=== PATIENT | male | born 1940 | race Caucasian/White ===

== ENCOUNTER → 2016-09-05 | Outpatient (CLI) | payer BC ==
[2016-09-05 13:27] LABS: ESTIMATED AVERAGE GLUCOSE 134 mg/dl; HA1C FLAG Normal (Normal)
[2016-09-05 13:32] LABS: BLOOD UREA NITROGEN 16 mg/dl (7-18); GLUCOSE 117 mg/dl (70-99)
[2016-09-05 13:33] LABS: ALT/SGPT 28 U/L (12-78); AST/SGOT 13 U/L (15-37); BUN/CREATININE RATIO 17.4 (10-20); CALCIUM 8.4 mg/dl (8.5-10.1); CARBON DIOXIDE 29 mmol/L (21-32); CHLORIDE 108 mmol/L (98-107); POTASSIUM 3.6 mmol/L (3.5-5.1); SODIUM 142 mmol/L (136-145)
[2016-09-05 13:35] LABS: CHOLESTEROL 132 mg/dl (0-200); CHOLESTEROL/HDL RATIO 3.6; HDL CHOLESTEROL 37 mg/dl; LDL CHOLESTEROL CALCULATED 77 mg/dl; TRIGLYCERIDES 90 mg/dl (0-150); VERY LOW DENSITY LIPOPROT CALC 18 mg/dl
--- NOTE | 2016-09-11 13:56 | CODING QUERY MEDICAL NECESSITY ---
SUPPORTING DIAGNOSIS NEEDED Dr. Carreon, A supporting diagnosis is required for the test/procedure performed on this patient in order for us to be reimbursed by the patient's insurance. Please provide a supporting diagnosis for the following test/procedure listed below next to the test name along with your signature. *If there is no additional diagnosis for this patient that would support the following test/procedure please document that below next to the test/procedure. Test(s)/Procedure(s) that require a supporting diagnosis: * [id number] GLYCATED HEMOGLOBIN DIAGNOSIS: DATE OF SERVICE: 09/05/16 Provider Signature: Date: Thank you Tanner Sellers [facility] Information Management Once completed, please kindly fax back to [phone] For questions please call [phone]
== END | disposition home or self-care (01) ==
LOC: C.LABMFLN 11:21
PROVIDERS: ATTEND Family Medicine
DX: I25.10 Atherosclerotic heart disease of native coronary artery without angina pectoris (principal); E78.00 Pure hypercholesterolemia, unspecified; I10 Essential (primary) hypertension; E11.9 Type 2 diabetes mellitus without complications

== ENCOUNTER → 2017-03-08 | Outpatient (CLI) | payer BC ==
[2017-03-08 14:32] LABS: RATIO 4.1 mcg/mg (0-30.0)
[2017-03-08 14:45] LABS: ALT/SGPT 21 U/L (12-78); BLOOD UREA NITROGEN 13 mg/dl (7-18); BUN/CREATININE RATIO 13.6 (10-20); CALCIUM 8.6 mg/dl (8.5-10.1); CARBON DIOXIDE 26 mmol/L (21-32); CHLORIDE 108 mmol/L (98-107); CHOLESTEROL 128 mg/dl (0-200); CREATININE 0.94 mg/dl (0.60-1.40); GLUCOSE 112 mg/dl (70-99); POTASSIUM 3.8 mmol/L (3.5-5.1); SODIUM 139 mmol/L (136-145); TRIGLYCERIDES 87 mg/dl (0-150); VERY LOW DENSITY LIPOPROT CALC 17 mg/dl
[2017-03-08 14:48] LABS: ALB/GLOB RATIO 1.3 (0.9-2); ALKALINE PHOSPHATASE 105 U/L (45-117); AST/SGOT 17 U/L (15-37); CHOLESTEROL/HDL RATIO 3.4; HDL CHOLESTEROL 38 mg/dl; LDL CHOLESTEROL CALCULATED 73 mg/dl
== END | disposition home or self-care (01) ==
LOC: C.LABMFLN 10:52
PROVIDERS: ATTEND Family Medicine
DX: I25.10 Atherosclerotic heart disease of native coronary artery without angina pectoris (principal); E78.00 Pure hypercholesterolemia, unspecified; I10 Essential (primary) hypertension; I48.0 Paroxysmal atrial fibrillation

== ENCOUNTER → 2017-03-12 | Outpatient (CLI) | payer BC | END | disposition home or self-care (01) | LOC: C.LABMFLN 15:44 | PROVIDERS: ATTEND Family Medicine | DX: M79.674 Pain in right toe(s) (principal) ==

== ENCOUNTER → 2017-05-14 | Outpatient (CLI) | payer BC ==
[~2017-05-14] MED LIST: ASPI81TA28 PO; ATOR-22 PO; DILT-119 PO; LISI10TA PO; METO100T44 PO; WARF5TAB90 PO
[2017-05-14 12:52] LABS: INR 1.5 (0.9-1.1); PARTIAL THROMBOPLASTIN RATIO 1.3; PROTHROMBIN TIME (PATIENT) 15.2 SECONDS (9.0-12.0)
[2017-05-14 13:00] LABS: BASO % 0.9 %; BASO ABS # 0.07 K/uL (0-0.2); COMPLETE YES; HEMATOCRIT 43.8 % (42-52); IG% 0.4 %; LYMPH % 17.8 %; LYMPH ABS # 1.32 K/uL (1.2-3.4); MEAN CELL VOLUME 91.3 fL (80-100); MEAN CORPUSCULAR HEMOGLOBIN 31.7 pg (25-34); MEAN CORPUSCULAR HGB CONC 34.7 g/dl (32-36); MEAN PLATELET VOLUME 11.5 fL (7.4-10.4); MONO % 8.3 %; NEUT % 69.6 %; PLATELET COUNT 169 K/uL (130-400); WHITE BLOOD COUNT 7.43 K/uL (4.8-10.8)
[2017-05-14 13:36] LABS: BLOOD UREA NITROGEN 13 mg/dl (7-18); BUN/CREATININE RATIO 14.4 (10-20); CALCIUM 8.5 mg/dl (8.5-10.1); CARBON DIOXIDE 28 mmol/L (21-32); CHLORIDE 106 mmol/L (98-107); CREATININE 0.91 mg/dl (0.60-1.40); GLUCOSE 103 mg/dl (70-99); POTASSIUM 3.5 mmol/L (3.5-5.1); SODIUM 138 mmol/L (136-145)
== END | disposition home or self-care (01) ==
LOC: C.LABMFLN 08:22
PROVIDERS: ATTEND Plastic Surgery
DX: C43.30 Malignant melanoma of unspecified part of face (principal); D09.9 Carcinoma in situ, unspecified; Z01.818 Encounter for other preprocedural examination

== ENCOUNTER → 2017-05-22 | Day surgery (SDC) | payer BC ==
[2017-05-14 11:00] VITALS: Ht 182.9 cm; Wt 90.9 kg
[~2017-05-22] VITALS: Ht 182.9 cm; Wt 90.9 kg
[~2017-05-22] MED LIST changes: +ACETAMINOPHEN 325 MG TAB PO PRN; +ATROPINE SULFATE 0.1 MG/ML 5ML SYR IV PRN; +CEFAZOLIN 2000MG IV PUSH 10 ML IV SCH; +DEXAMETHASONE SOD INJ 4 MG/ML VIAL ONE; +FENTANYL CITRATE INJ 50 MCG/1 ML 2 ML VIAL ONE; +KETAMINE HCL INJ 50 MG/ML 10 ML VIAL ONE; +LACTATED RINGER'S 1000ML 1,000 ML IV SCH; +LIDOCAINE HCL 2% 2 ML VIAL (20MG/ML) ONE; +LIDOCAINE/EPINEPHRINE 1% INJ 50 ML VIAL ONE; +METOCLOPRAMIDE HCL INJ 5 MG/ML 2 ML VIAL IV PRN; +MIDAZOLAM HCL 1 MG/ML 2ML VIAL ONE; +ONDANSETRON INJ 2 MG/ML 2 ML VIAL IV PRN; +ONDANSETRON INJ 2 MG/ML 2 ML VIAL ONE; +OXYCODONE/ACETAMINOPHEN 5-325 TAB PO PRN; +PROPOFOL IV EMULSION 10 MG/ML 20 ML VIAL IV ONE; +SODIUM CHLORIDE 0.9% 1000ML 1,000 ML IV SCH; +SODIUM CHLORIDE 0.9% INJ 10 ML VIAL ONE
--- NOTE | 2017-05-22 10:57 | History & Physical Bridge - [place] ---
H&P Re-Evaluation Bridge Note: I have examined the patient, reviewed the History & Physical and in the interval since the performance of the History & Physical I have noted the following changes of clinical significance: No changes noted
--- NOTE | 2017-05-22 12:44 | [facility] Post Operative Brief Note ---
Immediate Operative Summary Operative Date May 22, 2017. Pre-Operative Diagnosis Malignant melanoma of skin of face, squamous cell carcinoma in situ Post-Operative Diagnosis same Procedure(s) Performed Left Cheek squamous Cell Carcinoma With Primary Closure; Left Ear Melanoma Excision with Full Thickness Skin Graft Surgeon Dr Sultana Velocity Shooter Surgeon(s) INOCENTE Lee Estimated Blood Loss 10ml Findings no residual SCC Specimens A) Squamous Cell Carcinoma in situ left cheek, suture at 12 O'clock B)Melanoma left posterior ear, Breslow depth 0.25 Anesthesia local with sedation Complication(s) None Disposition Recovery Room / PACU
[2017-05-22 12:48] VITALS: TEMP 36.4
--- NOTE | 2017-05-22 12:48 | Discharge Instructions ---
Discharge Instructions Date of Service May 22, 2017. Admission Reason for Admission: Squamous Cell Carincoma Insitu, Malig Melanoma Fac Discharge Discharge Diagnosis / Problem: melanoma and SCC Discharge Goals Goal(s): Decrease discomfort, Improve function Activity Recommendations Activity Limitations: per Instructions/Follow-up section ACTIVITY RECOMMENDATIONS: __Normal activities _x_No bending, lifting or straining __No driving _x_Driving allowed when you are off pain medications _x_Walking permitted __You should have help at home for ___ days DRESSINGS: __No dressings required _x_Keep dressings dry/in place until first office visit __Remove dressings ___ and leave dressings off __Apply ice ___ days __Remove dressings and reapply garment __Apply antibiotic ointment (Bacitracin, Neosporin, etc) to wounds 3-4 times/ day for 10 days BATHING: _x_Keep dressings dry _x_Sponge bathing permitted __Showering permitted _x_No swimming, hot tubs or soaking in a tub MEDICATIONS: Resume previous medications unless instructed otherwise by your surgeon. _x_Do not use aspirin, Motrin, Advil or Ibuprofen as these may promote bleeding. Please use Tylenol. _x_Prescription(s) provided: Resume your coumadin and other medications as previously discussed. pain medication was provided at your last office visit OTHER INSTRUCTIONS: __Record drain output 2-3 times per day SPECIAL CARE INSTRUCTIONS: * It is normal to have a mild fever after surgery. If your temperature is higher than 101.5 degrees F, please call the office at [phone]. * Constipation is a typical side effect of pain medication. An over-the- counter stool softener will help relieve this. * Leaking around surgical drains may occur and should not cause concern. Sometimes these drains become clogged. If this happens, remove the bulb and milk the clot out of the tube, then replace the bulb. * Drainage from wounds after liposuction is normal and should be expected. Garments will become soiled. You should protect furniture and bedding. This drainage should mostly subside within 2-3 days. Leave garments in place unless instructed to remove them. * If you have unusual drainage from a wound or are concerned you have an infection or have any questions or concerns, please call the office at [phone]. FOLLOW UP VISIT: If not already scheduled, please call the office, , when you return home after surgery to schedule an appointment to be seen in _2__ days. . Current Hospital Diet Patient's current hospital diet: Discharge Diet Recommended Diet: Regular Diet Procedures Procedures Performed: Left Cheek squamous Cell Carcinoma With Primary Closure; Left Ear Melanoma Excision with Full Thickness Skin Graft Pending Studies Studies pending at discharge: yes List of pending studies: pathology Laboratory Results Hemoglobin A1c Test 03/08/17 10:55 Range/Units Estimated Average Glucose 131 mg/dl Hemoglobin A1c 6.2 H 4.5-5.6 % Lipid Panel Test 03/08/17 10:55 Range/Units Triglycerides Level 87 0-150 mg/dl Cholesterol Level 128 0-200 mg/dl HDL Cholesterol 38 mg/dl Cholesterol/HDL Ratio 3.4 LDL Cholesterol, Calculated 73 mg/dl Medical Emergencies . Who to Call and When: Medical Emergencies: If at any time you feel your situation is an emergency, please call 911 immediately. . Non-Emergent Contact Non-Emergency issues call your: Primary Care Provider, Surgeon . "Provider Documentation" section prepared by Gissel Dolan. . VTE Core Measure Inpt VTE Proph given/why not?: SCD's [place] Drug Monitoring Program Search Results: no issues identified
--- NOTE | 2017-05-22 12:55 | Anesthesia Progress Nt - [facility] ---
Anesthesia Post Op Note Date & Time May 22, 2017 at 12:55 Vital Signs Pain Intensity: 0 Vital Signs Past 12 Hours Date Time Temp Pulse Resp B/P (MAP) Pulse Ox O2 Delivery O2 Flow Rate FiO2 05/22/17 12:48 36.4 59 16 144/76 (98) 94 Room Air 05/22/17 09:55 36.8 65 16 143/79 (100) 95 Room Air Notes Mental Status: alert / awake / arousable, participated in evaluation Pt Amnestic to Procedure: Yes Nausea / Vomiting: adequately controlled Pain: adequately controlled Airway Patency, RR, SpO2: stable & adequate BP & HR: stable & adequate Hydration State: stable & adequate Anesthetic Complications: no major complications apparent
[2017-05-22 13:19] VITALS: BP 127/70; PULSE 62; O2SAT 95
--- NOTE | 2017-05-23 08:52 | OPERATIVE REPORT ---
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 POSTOPERATIVE DIAGNOSES: Same. PROCEDURES: Excision of squamous cell carcinoma, left cheek with frozen section and layered closure and excision of stage IA melanoma, left posterior ear with full thickness skin grafting. SURGEON: Dr. Angeli Sultana. DOCUMENT DESIGN SPECIALIST: Gissel Dolan PA-C ANESTHESIA: Local with sedation. COMPLICATIONS: None. INDICATION FOR THE PROCEDURE: The patient is a 76-year-old male, referred to me by Dr. Gonzales after undergoing biopsy of a lesion of his left cheek, which showed squamous cell carcinoma in situ without visualization of the base and malignant melanoma of left posterior ear, Breslow depth 0.25 mm, positive margins, no ulceration or mitoses. After discussion, given the large size and the need for wide excision and location, we discussed that he would need to have placement of a full thickness skin graft in the operating room. I also discussed that the squamous cell carcinoma in situ could be removed at the same time and that I would recommend frozen section as we would be in the operating room. BRIEF DESCRIPTION OF THE PROCEDURE: Risks, benefits, and alternatives of the procedure were explained to the patient, who agreed and signed consent. He was identified and marked in the preoperative holding area. He was brought to the operating room, where he was positioned supine and placed under sedation without incident. Surgical site was prepped and draped sterilely. A time-out procedure was performed. I began with excision of the left cheek squamous cell carcinoma in situ. Shave biopsy scar along the cheek was 6 mm. This was marked with about 3-mm margin for maximal excision diameter of 1.2 cm. 1% lidocaine with epinephrine was used to anesthetize the area. A 15-blade scalpel was used to make the incision. Incision was carried into underlying subcutaneous fat and the lesion was removed at this level. A suture was placed at 12 o'clock position and the lesion was sent for frozen section. Hemostasis was achieved with electrocautery. While awaiting frozen section, melanoma of the left posterior ear was addressed. Fresh injection needle and scalpel blade were utilized for this portion of the procedure. The scar of the posterior ear measured approximately 1 cm, although margins were ill defined. Adjacent to this, there was an area of a brown pigmentation concerning for melanoma in situ or residual lentigo maligna melanoma. The prior scar as well as this area of pigmentation were marked with a 1-cm margin for maximal excision diameter of 3 x 2 cm. 1% lidocaine with epinephrine was used to anesthetize the area. I measured a graft harvest site on the left supraclavicular area corresponding to an appropriate size to inset into the excision site. A fresh needle and blade were used for this portion as well. 1% lidocaine with epinephrine was injected into the area. I used a 15 blade scalpel to remove the melanoma from the posterior left ear down to perichondrium. The specimen was passed off and hemostasis was achieved with electrocautery. An elliptical incision was made at the graft harvest site of the left supraclavicular area and the graft was harvested full thickness using a scalpel. The graft was then defatted using a curved iris scissor. Hemostasis was achieved at the donor site and the wound edges were undermined to facilitate closure. The donor site was closed using 3-0 PDS interrupted dermal sutures and 3-0 Monocryl running subcuticular suture followed by Dermabond. The graft was inset into the recipient site using 4-0 silk tie over bolster sutures and 4-0 chromic interrupted sutures around the wound periphery as well as centrally to tack down the graft. Excess graft was excised using a curved iris scissor. A bolster of Xeroform and saline moistened cotton was created using a tie over sutures on the posterior aspect of the ear. The frozen section results showed no residual carcinoma and therefore, wound closure was undertaken on the left cheek. Small dog ears were marked for excision and wound edges were undermined using electrocautery. Wound was reapproximated using 4-0 Vicryl interrupted dermal sutures and 4-0 Monocryl running subcuticular suture. Total wound closure length was 3 cm. The procedure was tolerated well. The patient was awakened and transferred to recovery room in satisfactory condition. Gissel Dolan was present and scrubbed throughout the entire procedure and was instrumental in providing retraction, assisting in achieving hemostasis and defatting of the skin graft prior to inset. I attest to the content of the Intraoperative Record and any orders documented therein. Any exception s are noted below.
== END | disposition home or self-care (01) ==
LOC: X.SURG 09:32
PROVIDERS: ATTEND Plastic Surgery
DX: C43.22 Malignant melanoma of left ear and external auricular canal (principal); D04.39 Carcinoma in situ of skin of other parts of face; I25.10 Atherosclerotic heart disease of native coronary artery without angina pectoris; I10 Essential (primary) hypertension; I48.0 Paroxysmal atrial fibrillation; Z79.82 Long term (current) use of aspirin; Z79.01 Long term (current) use of anticoagulants; Z79.899 Other long term (current) drug therapy

== ENCOUNTER → 2017-09-05 | Outpatient (CLI) | payer BC ==
[~2017-09-05] MED LIST changes: -ACETAMINOPHEN 325 MG TAB PO PRN; -ATROPINE SULFATE 0.1 MG/ML 5ML SYR IV PRN; -CEFAZOLIN 2000MG IV PUSH 10 ML IV SCH; -DEXAMETHASONE SOD INJ 4 MG/ML VIAL ONE; -FENTANYL CITRATE INJ 50 MCG/1 ML 2 ML VIAL ONE; -KETAMINE HCL INJ 50 MG/ML 10 ML VIAL ONE; -LACTATED RINGER'S 1000ML 1,000 ML IV SCH; -LIDOCAINE HCL 2% 2 ML VIAL (20MG/ML) ONE; -LIDOCAINE/EPINEPHRINE 1% INJ 50 ML VIAL ONE; -METOCLOPRAMIDE HCL INJ 5 MG/ML 2 ML VIAL IV PRN; -MIDAZOLAM HCL 1 MG/ML 2ML VIAL ONE; -ONDANSETRON INJ 2 MG/ML 2 ML VIAL IV PRN; -ONDANSETRON INJ 2 MG/ML 2 ML VIAL ONE; -OXYCODONE/ACETAMINOPHEN 5-325 TAB PO PRN; -PROPOFOL IV EMULSION 10 MG/ML 20 ML VIAL IV ONE; -SODIUM CHLORIDE 0.9% 1000ML 1,000 ML IV SCH; -SODIUM CHLORIDE 0.9% INJ 10 ML VIAL ONE
[2017-09-05 13:33] LABS: HEMOGLOBIN A1C 6.2 % (4.5-5.6)
[2017-09-05 14:37] LABS: ALBUMIN 3.5 gm/dl (3.4-5.0); ALT/SGPT 24 U/L (12-78); AST/SGOT 16 U/L (15-37); BLOOD UREA NITROGEN 15 mg/dl (7-18); CALCIUM 8.2 mg/dl (8.5-10.1); CARBON DIOXIDE 26 mmol/L (21-32); CHOLESTEROL 136 mg/dl (0-200); CREATININE 0.84 mg/dl (0.60-1.40); GLUCOSE 106 mg/dl (70-99); POTASSIUM 3.8 mmol/L (3.5-5.1); SODIUM 139 mmol/L (136-145)
[2017-09-05 14:39] LABS: ALKALINE PHOSPHATASE 110 U/L (45-117); LDL CHOLESTEROL CALCULATED 81 mg/dl; TOTAL PROTEIN 6.6 gm/dl (6.4-8.2)
== END | disposition home or self-care (01) ==
LOC: C.LABMFLN 09:22
PROVIDERS: ATTEND Family Medicine
DX: I25.10 Atherosclerotic heart disease of native coronary artery without angina pectoris (principal); E78.00 Pure hypercholesterolemia, unspecified; I10 Essential (primary) hypertension; R73.03 Prediabetes